=== PATIENT | female | born 1955 | race Caucasian/White ===

== ENCOUNTER 2017-04-14 08:03 | Inpatient (IN) | payer MEDICAID, OTHER ==
[~2017-04-14] VITALS: Ht 162.6 cm; Wt 99.8 kg
[2017-04-14] MEDS ORDERED: SODIUM CHLORIDE 0.9% 1,000 ML IV ONE (11:08)
[2017-04-14] MEDS ORDERED: KETOROLAC TROMETH 30 MG/ML 1ML VIAL IV ONE (11:15)
[2017-04-14 11:48] LABS: Eosinophils # (auto) 0.1 uL; Hemoglobin 12.9 g/dL (12.2-16.2); Lymphocytes # (auto) 1.4 uL; Lymphocytes % (auto) 21.8 % (10.0-50.0); Mean Corpuscular Hemoglobin 24.1 pg (28.0-32.0); Monocytes # (auto) 0.5 uL; Nucleated Red Blood Cells % 0.1 %; White Blood Cell 6.6 10^3/uL (4.4-10.8)
[2017-04-14 11:50] LABS: Basophils # (auto) 0 uL; Basophils % (auto) 0.7 % (0.0-2.0); Hematocrit 42.5 % (36.0-46.0); Mean Corpuscular Hgb Conc. 30.3 g/dL (32.0-36.0); Mean Corpuscular Volume 79.7 fL (80.0-100.0); Mean Platelet Volume 7.8 fL (6.9-10.8); Monocytes % (auto) 7.4 % (0.0-12.0); Neutrophils # (auto) 4.5 uL; Neutrophils % (auto) 69.1 % (37.0-80.0); Platelet Count (auto) 204 10^3/uL (140-450); Red Cell Distribution Width 19.7 % (11.8-14.3)
[2017-04-14 12:13] LABS: Albumin 3.7 g/dL (3.4-5.0); BUN/Creatinine Ratio 22.8; Bilirubin, Total 0.3 mg/dL (0.2-1.0); Calcium 8.7 mg/dL (8.5-10.1); Magnesium 2.5 mg/dL (1.6-2.6); Potassium 5.1 mmol/L (3.5-5.1); Total Protein 7.6 g/dL (6.4-8.2)
[2017-04-14] MEDS ORDERED: HYDROcodone-ACET 5/325MG TAB PO ONE (14:15)
[2017-04-14] MEDS ORDERED: MORPHINE SULF INJ 2 MG/ML SYRINGE 1ML IV PRN (17:30)
[2017-04-14] MEDS ORDERED: NITROGLYCERIN 0.4 MG SL TAB SL PRN (17:30)
[2017-04-14] MEDS ORDERED: DEXTROSE (50%) 50ML SYRG IV PRN (17:30)
[2017-04-14] MEDS: ENOXAPARIN SOD 40 MG/0.4 ML SYRINGE SC SCH (18:08)
[2017-04-14] MEDS: MORPHINE SULF INJ 2 MG/ML SYRINGE 1ML IV PRN ×2 (19:30→21:49)
[2017-04-14 21:30] VITALS: BP 147/86
[2017-04-14] MEDS ORDERED: FUROSEMIDE 40 MG/4 ML VIAL IV ONE (21:30)
[2017-04-14] MEDS: InsuLIN REG 1unit/0.01ml Soln (100units/ml) SC SCH (22:00)
[2017-04-14] MEDS: ACCU-CHEK COMFORT CURVE STRIP VI SCH (22:00)
[2017-04-15] MEDS ORDERED: ALPR1TAB7 PO (02:19)
[2017-04-15] MEDS ORDERED: FENO54TA4 PO (02:19)
[2017-04-15] MEDS ORDERED: FURO40TA4 PO (02:19)
[2017-04-15] MEDS ORDERED: AMIT10TA6 PO (02:19)
[2017-04-15] MEDS ORDERED: PANT1INJ3 PO (02:19)
[2017-04-15] MEDS ORDERED: LISI30TA36 PO (02:19)
[2017-04-15] MEDS ORDERED: METO10TA3 PO (02:19)
[2017-04-15] MEDS: MORPHINE SULF INJ 2 MG/ML SYRINGE 1ML IV PRN ×5 (03:57→21:14)
[2017-04-15 05:00] VITALS: BP 111/60
[2017-04-15] MEDS: InsuLIN REG 1unit/0.01ml Soln (100units/ml) SC SCH ×4 (07:26→22:15)
[2017-04-15] MEDS: ACCU-CHEK COMFORT CURVE STRIP VI SCH ×4 (07:26→22:06)
[2017-04-15 08:02] LABS: Basophils # (auto) 0 uL; Basophils % (auto) 0.7 % (0.0-2.0); Eosinophils # (auto) 0.1 uL; Hemoglobin 12.4 g/dL (12.2-16.2); Lymphocytes # (auto) 1.2 uL; Monocytes # (auto) 0.5 uL; Neutrophils # (auto) 4.2 uL; Red Cell Distribution Width 19.2 % (11.8-14.3); White Blood Cell 5.9 10^3/uL (4.4-10.8)
[2017-04-15 08:04] LABS: Eosinophils % (auto) 1.3 % (0.0-7.0); Hematocrit 40.6 % (36.0-46.0); Lymphocytes % (auto) 20.2 % (10.0-50.0); Mean Corpuscular Hemoglobin 24.2 pg (28.0-32.0); Mean Corpuscular Hgb Conc. 30.4 g/dL (32.0-36.0); Mean Corpuscular Volume 79.6 fL (80.0-100.0); Mean Platelet Volume 8.1 fL (6.9-10.8); Monocytes % (auto) 7.6 % (0.0-12.0); Neutrophils % (auto) 70.2 % (37.0-80.0); Nucleated Red Blood Cells % 0.4 %
[2017-04-15 08:05] LABS: Platelet Count (auto) 192 10^3/uL (140-450)
[2017-04-15 09:00] VITALS: BP 156/92
[2017-04-15 09:06] LABS: BUN/Creatinine Ratio 22.2; Calcium 8.6 mg/dL (8.5-10.1); Potassium 4.5 mmol/L (3.5-5.1)
[2017-04-15] MEDS ORDERED: INFLUENZA QUAD 2017-2018 0.5 ML SYRG IM ONE (10:00)
[2017-04-15] MEDS: ENOXAPARIN SOD 40 MG/0.4 ML SYRINGE SC SCH (10:45)
[2017-04-15 11:49] LABS: Urine RBC None Seen /hpf (0 - 4)
[2017-04-15 11:59] LABS: Urine Bilirubin Negative (Negative); Urine Blood Negative /uL (Negative); Urine Color Yellow (Yellow); Urine Glucose 4+ mg/dL (Normal); Urine Ketone Negative (Negative); Urine Nitrite Negative (Negative); Urine Squamous Epithelial Cell FEW /hpf (<5); Urine Urobilinogen Normal (Negative); Urine pH 7.5 (5.0-8.0)
[2017-04-15 12:41] VITALS: BP 178/80
[2017-04-15] MEDS: PANTOPRAZOLE 40 MG TAB PO SCH ×2 (13:48→22:04)
[2017-04-15] MEDS ORDERED: LISINOPRIL 10 MG TAB PO ONE (16:15)
[2017-04-15] MEDS: ALPRAZolam 0.5 MG TAB PO PRN (16:29)
[2017-04-15 17:40] VITALS: BP 148/89
[2017-04-15 22:00] VITALS: BP 111/57
[2017-04-16] MEDS: MORPHINE SULF INJ 2 MG/ML SYRINGE 1ML IV PRN ×5 (01:09→20:09)
[2017-04-16] MEDS: ACCU-CHEK COMFORT CURVE STRIP VI SCH ×4 (05:36→22:13)
[2017-04-16] MEDS: InsuLIN REG 1unit/0.01ml Soln (100units/ml) SC SCH ×4 (05:37→22:15)
[2017-04-16 06:06] VITALS: BP 134/83
[2017-04-16 07:09] LABS: Basophils # (auto) 0 uL; Basophils % (auto) 0.4 % (0.0-2.0); Eosinophils # (auto) 0.1 uL; Monocytes # (auto) 0.5 uL; Neutrophils # (auto) 4.1 uL; Nucleated Red Blood Cells % 0.1 %
[2017-04-16 07:13] LABS: Hematocrit 42.8 % (36.0-46.0); Hemoglobin 13.3 g/dL (12.2-16.2); Lymphocytes # (auto) 0.9 uL; Lymphocytes % (auto) 16.2 % (10.0-50.0); Mean Corpuscular Hemoglobin 24.3 pg (28.0-32.0); Mean Corpuscular Volume 78.3 fL (80.0-100.0); Mean Platelet Volume 7.9 fL (6.9-10.8); Neutrophils % (auto) 73.4 % (37.0-80.0); Platelet Count (auto) 217 10^3/uL (140-450); Red Cell Distribution Width 19.2 % (11.8-14.3); White Blood Cell 5.6 10^3/uL (4.4-10.8)
[2017-04-16 07:16] LABS: Albumin 3.4 g/dL (3.4-5.0); Bilirubin, Total 0.6 mg/dL (0.2-1.0); Potassium 4.9 mmol/L (3.5-5.1); Total Protein 7.4 g/dL (6.4-8.2)
[2017-04-16 09:00] VITALS: BP 127/83
[2017-04-16] MEDS ORDERED: GASTROGRAFIN 120 ML SOL ONE ×2 (09:02→09:20)
[2017-04-16] MEDS ORDERED: EZ-GAS II GRANULES (RADIOLOGY USE) PO ONE (09:03)
[2017-04-16] MEDS: ENOXAPARIN SOD 40 MG/0.4 ML SYRINGE SC SCH (10:39)
[2017-04-16] MEDS: PANTOPRAZOLE 40 MG TAB PO SCH ×2 (10:41→22:12)
[2017-04-16] MEDS: LISINOPRIL 10 MG TAB PO SCH (10:41)
[2017-04-16] MEDS ORDERED: INFLUENZA QUAD 2017-2018 0.5 ML SYRG IM ONE (10:45)
[2017-04-16] MEDS ORDERED: PNEUMOCOCCAL VACC POLYS 25 MCG/0.5 ML VIAL IM ONE (11:45)
[2017-04-16 13:00] VITALS: BP 149/67
[2017-04-16] MEDS: ALPRAZolam 0.5 MG TAB PO PRN ×2 (15:06→22:13)
[2017-04-16 17:00] VITALS: BP 131/72
[2017-04-16 22:00] VITALS: BP 112/60
[2017-04-17] MEDS: MORPHINE SULF INJ 2 MG/ML SYRINGE 1ML IV PRN ×2 (04:15→09:12)
[2017-04-17] MEDS: ACCU-CHEK COMFORT CURVE STRIP VI SCH ×2 (05:19→11:30)
[2017-04-17] MEDS: InsuLIN REG 1unit/0.01ml Soln (100units/ml) SC SCH ×2 (05:20→11:30)
[2017-04-17 05:29] VITALS: BP 112/71
[2017-04-17 06:27] LABS: Basophils # (auto) 0 uL; Eosinophils # (auto) 0.1 uL
[2017-04-17 06:30] LABS: Basophils % (auto) 0.6 % (0.0-2.0); Eosinophils % (auto) 0.9 % (0.0-7.0); Hematocrit 42.9 % (36.0-46.0); Hemoglobin 13.3 g/dL (12.2-16.2); Lymphocytes # (auto) 1.2 uL; Lymphocytes % (auto) 18.3 % (10.0-50.0); Mean Corpuscular Hemoglobin 24.4 pg (28.0-32.0); Mean Corpuscular Volume 78.5 fL (80.0-100.0); Mean Platelet Volume 8.1 fL (6.9-10.8); Monocytes # (auto) 0.7 uL; Monocytes % (auto) 10.3 % (0.0-12.0); Neutrophils # (auto) 4.5 uL; Neutrophils % (auto) 69.9 % (37.0-80.0); Nucleated Red Blood Cells % 0.1 %; Platelet Count (auto) 254 10^3/uL (140-450); White Blood Cell 6.4 10^3/uL (4.4-10.8)
[2017-04-17 06:48] LABS: Potassium 4.6 mmol/L (3.5-5.1)
[2017-04-17 06:52] LABS: Albumin 3.2 g/dL (3.4-5.0); BUN/Creatinine Ratio 24.2; Calcium 9.1 mg/dL (8.5-10.1)
[2017-04-17 06:54] LABS: Bilirubin, Total 0.8 mg/dL (0.2-1.0); Total Protein 7.2 g/dL (6.4-8.2)
[2017-04-17 09:00] VITALS: BP 142/98
[2017-04-17] MEDS: ENOXAPARIN SOD 40 MG/0.4 ML SYRINGE SC SCH (09:11)
[2017-04-17] MEDS: PANTOPRAZOLE 40 MG TAB PO SCH (09:11)
[2017-04-17] MEDS: LISINOPRIL 10 MG TAB PO SCH (09:12)
[2017-04-17 11:01] VITALS: BP 142/98
== END 2017-04-17 12:50 | disposition home or self-care (01) | DRG 241 ==
LOC: ER 08:03 → TELE 08:04 → TELE-CENTR 21:28
PROVIDERS: ADMIT Nurse Practitioner Acute Care; ATTEND Internal Medicine
DX: K29.70 Gastritis, unspecified, without bleeding (principal); I31.3 Pericardial effusion (noninflammatory); I11.0 Hypertensive heart disease with heart failure; E11.65 Type 2 diabetes mellitus with hyperglycemia; E44.1 Mild protein-calorie malnutrition; I50.9 Heart failure, unspecified; M19.011 Primary osteoarthritis, right shoulder; F11.20 Opioid dependence, uncomplicated; E66.01 Morbid (severe) obesity due to excess calories; E78.5 Hyperlipidemia, unspecified; E86.0 Dehydration; F17.210 Nicotine dependence, cigarettes, uncomplicated; I25.10 Atherosclerotic heart disease of native coronary artery without angina pectoris; J44.9 Chronic obstructive pulmonary disease, unspecified; G89.29 Other chronic pain; Z79.899 Other long term (current) drug therapy; Z95.1 Presence of aortocoronary bypass graft; Z88.0 Allergy status to penicillin; Z23 Encounter for immunization; Z68.37 Body mass index [BMI] 37.0-37.9, adult
CPT/HCPCS: 36415; 71020; 73030; 74247; 80048; 80053; 81001; 82962; 83036; 83735; 84443; 85025; 93005; 93306; 96361; 96372; 96374; 96375; J1815; J1885